=== PATIENT | male | born 1955 | race Two or more races ===

== ENCOUNTER → 2017-02-19 | Outpatient (CLI) | payer OTHER ==
--- NOTE | 2017-02-19 21:01 | REP ---
RIGHT KNEE, FOUR VIEWS: HISTORY: Pain. COMPARISON: 12/30/2011. The patient is status post right knee arthroplasty. There is no acute fracture or dislocation. IMPRESSION: The patient is status post right knee arthroplasty. Signed by Ken Santos MD 02/20/2017 07:46 A
--- NOTE | 2017-02-19 21:02 | REP ---
RIGHT ANKLE, FOUR VIEWS: HISTORY: Pain. There is no acute fracture or dislocation. The joint space is normal in appearance. IMPRESSION: There is no acute fracture or dislocation. Signed by Ken Santos MD 02/20/2017 07:46 A
== END ==
LOC: M WUC 09:32
PROVIDERS: ATTEND Physician Assistant
DX: M25.561 Pain in right knee (principal); M25.571 Pain in right ankle and joints of right foot

== ENCOUNTER 2017-05-06 16:12 | Emergency (ER) | payer BC, OTHER ==
[~2017-05-06] VITALS: Ht 165.1 cm; Wt 94.8 kg
[2017-05-06] MEDS ORDERED: LIDOCAINE W/EPINEPHRINE 1% 20ML VIAL SC ONE (16:45)
[2017-05-06] MEDS ORDERED: AUGM875T28 PO (17:35)
[2017-05-06] MEDS ORDERED: NORCOTAB PO (18:33)
[2017-05-06 18:38] VITALS: BP 144/77
== END 2017-05-06 18:40 | disposition home or self-care (01) ==
LOC: M ED 16:12
DX: S01.511A Laceration without foreign body of lip, initial encounter (principal); W45.8XXA Other foreign body or object entering through skin, initial encounter; Y92.89 Other specified places as the place of occurrence of the external cause; Y93.89 Activity, other specified; Y99.9 Unspecified external cause status

== ENCOUNTER → 2019-01-07 | Outpatient (CLI) | payer OTHER ==
[~2019-01-07] MED LIST: AUGM875T28 PO; NORCOTAB PO
--- NOTE | 2019-01-12 15:26 | REP ---
THREE-PHASE BONE SCAN OF THE KNEES: HISTORY: Rule out loosening versus fracture. The patient reports an accident in the Fall in July 2018. Bilateral knee pain, left more than right. History of right knee replacement 2 years ago. Comparison bilateral knee radiographs have been retrieved. These are dated November 05, 2018. TECHNIQUE: 22.0 mCi technetium 99m MDP is injected and standard three-phase imaging was acquired. SCINTIGRAPHIC FINDINGS: Anterior and posterior flow images are normal. Blood pool images and delayed scan images demonstrate mild arthritic uptake in the medial and patellofemoral compartment of the left knee. There is prosthesis bone interface uptake associated with the right knee arthroplasty components. There is no focality on the right to suggest loosening or infection. Incidental note is made of mild arthritic uptake in the right ankle and hind foot and to a lesser extent in the left ankle. IMPRESSION: Arthritic uptake pattern in the left knee and bilateral ankles. Expected bone prosthesis interface uptake associated with the right knee arthroplasty. No evidence to suggest loosening or infection. Electronically Signed by Ron Kilgore MD 01/12/2019 05:25 P
== END ==
LOC: M RAD 09:59
PROVIDERS: ATTEND Physician Assistant
DX: Z96.653 Presence of artificial knee joint, bilateral (principal); M17.12 Unilateral primary osteoarthritis, left knee; M19.071 Primary osteoarthritis, right ankle and foot; M19.072 Primary osteoarthritis, left ankle and foot
CPT/HCPCS: 78315; A9503

== ENCOUNTER 2020-10-21 15:36 | Inpatient (IN) | payer OTHER ==
[~2020-10-21] VITALS: Ht 172.7 cm; Wt 105.2 kg
[~2020-10-21 15:36] MED LIST changes: +HYDR-3715 PO; -NORCOTAB PO
[2020-10-21] MEDS ORDERED: AMLO25TA PO (15:46)
[2020-10-21] MEDS ORDERED: MORPHINE 4 MG/ML 1ML VIAL/SYRINGE (J2270) IV ONE ×2 (17:15→21:00)
[2020-10-21 17:57] LABS: BASO # 0.1 10^3/uL (0.0-0.2); BASO % 0.7 % (0.0-1.0); EOS # 0.7 10^3/uL (0.0-0.5); EOS % 6.7 % (0.0-3.0); HEMOGLOBIN 15.7 g/dl (13.5-17.5); LYMPH # 1.7 10^3/uL (1.5-5.0); LYMPH % 15.9 % (24.0-44.0); MEAN CORPUSCULAR HEMOGLOBIN 31.8 pg (27.0-33.0); MEAN CORPUSCULAR HGB CONC 33.4 g/dl (32.0-36.5); MEAN CORPUSCULAR VOLUME 95.3 fl (80.0-96.0); MONO # 0.8 10^3/uL (0.0-0.8); MONO % 7.3 % (0.0-5.0); NEUTROPHILS # 7.5 10^3/uL (1.5-8.5); NEUTROPHILS % 68.9 % (36.0-66.0); PLATELET COUNT, AUTOMATED 186 10^3/uL (150-450); RED BLOOD COUNT 4.93 10^6/uL (4.30-6.10); WHITE BLOOD COUNT 10.9 10^3/uL (4.0-10.0)
[2020-10-21] MEDS ORDERED: ISOVUE-370 76% 100ML VIAL As Ordered ONE (18:09)
[2020-10-21 18:17] LABS: ERYTHROCYTE SEDIMENTATION RATE 5 mm/hr (0-20)
[2020-10-21 18:29] LABS: ALBUMIN 3.8 GM/DL (3.2-5.2); ALT/SGPT 66 U/L (12-78); BILIRUBIN,DIRECT < 0.1 MG/DL (0.0-0.2); BILIRUBIN,TOTAL 0.5 MG/DL (0.2-1.0); C REACTIVE PROTEIN QUANTITATIV 0.88 MG/DL (0.00-0.30); TOTAL PROTEIN 7.3 GM/DL (6.4-8.2)
[2020-10-21] MEDS ORDERED: dexameTHASONE 20MG/5ML VIAL (J1100 PER 1MG) IV ONE (20:45)
[2020-10-21] MEDS ORDERED: AMPICILLIN SOD/SULBACTAM SOD 3 GM in D5W MINI-BAG PLUS 100 ML IV ONE (20:45)
[2020-10-21] MEDS ORDERED: ACETAMINOPHEN TAB 650MG DOSE (2X325MG) PO PRN (21:30)
--- NOTE | 2020-10-21 21:43 | HPEPDOC ---
General Date of Admission 10/21/20 Date of Service: Oct 21, 2020 Chief Complaint The patient is a 65-year-old male admitted with a reason for visit of EYE Pain. 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 Genie hartley stated that for past 3 days he has been having increased swelling and pain of the right periorbital area. Patient removed his eye prosthesis and decided to come to ER. In ER patient was found to have white blood count of 10.5. CT scan showed significant soft tissue swelling of right jaime-orbital area. ER contacted ENT in [facility], who did facial reconstruction surgery after construction accident. He recommended antibiotics therapy. Home Medications Scheduled Amlodipine Besylate (Amlodipine Besylate) 2.5 Mg Tablet, 2.5 MG PO DAILY, (Reported) Allergies Coded Allergies: nitroglycerin (Verified Adverse Reaction, Intermediate, PASSES OUT(NITROSTAT), 10/21/20) Past Medical History Medical History Multiple orthopedic surgery after construction accident Patient lost right eye after accident in 2018 Hypertension Surgical History Multiple orthopedic surgery after construction accident Family History I personally reviewed family history and found not pertinent Social History * Smoker: current smoker Alcohol: Denies Drugs: denies A-FIB/CHADSVASC A-FIB History Current/History of A-Fib/PAF?: No Current PO Anticoag Therapy: No Review of Systems Constitutional: Denies: Chills, Fever Eyes: Reports: Pain, Redness ENT: Reports: Head Aches Skin: Denies: Rash, Lesions Pulmonary: Denies: Dyspnea, Cough Cardiovascular: Denies: Chest Pain Gastrointestinal: Denies: Nausea Genitourinary: Denies: Frequency Hematologic: Denies: Bruising Endocrine: Denies: Polydipsia, Polyphagia Musculoskeletal: Denies: Neck Pain Neurological: Denies: Weakness Psych: Reports: Mood Normal Physical Examination General Exam: Positive: Alert, Cooperative Eye Exam: Positive: Other Eye Symptoms ( right periorbital swelling); Negative: PERRLA (no red eye) ENT Exam: Positive: Pharynx Normal, Nares Patent Neck Exam: Positive: Supple; Negative: JVD Chest Exam: Positive: Clear to auscultation Heart Exam: Positive: Rate Normal Telemetry: Positive: No significant arrhythmia Abdomen Exam: Positive: Normal bowel sounds Extremity Exam: Negative: Clubbing, Cyanosis Skin Exam: Positive: Nl turgor and temperature Neuro Exam: Positive: Strength at 5/5 X4 ext, Reflexes 2+ Psych Exam: Positive: Mental status NL Vital Signs Vital Signs Date Time Temp Pulse Resp B/P (MAP) Pulse Ox O2 Delivery O2 Flow Rate FiO2 10/21/20 21:11 16 10/21/20 16:03 10/21/20 15:37 98.4 68 97 Room Air Laboratory Data Labs 24H Laboratory Tests 2 10/21/20 17:43: Immature Granulocyte % (Auto) 0.5, Neutrophils (%) (Auto) 68.9H, Lymphocytes (%) (Auto) 15.9L, Monocytes (%) (Auto) 7.3H, Eosinophils (%) (Auto) 6.7H, Basophils (%) (Auto) 0.7, Neutrophils # (Auto) 7.5, Lymphocytes # (Auto) 1.7, Monocytes # (Auto) 0.8, Eosinophils # (Auto) 0.7H, Basophils # (Auto) 0.1, Nucleated Red Blood Cells % (auto) 0.0, Erythrocyte Sedimentation Rate 5, Lactic Acid Level 1.5, Total Bilirubin 0.5, Direct Bilirubin < 0.1, Aspartate Amino Transf (AST/SGOT) 58H, Alanine Aminotransferase (ALT/SGPT) 66, Alkaline Phosphatase 92, C-Reactive Protein, Quantitative 0.88H, Total Protein 7.3, Albumin 3.8, Albumin/Globulin Ratio 1.1 10/21/20 17:51: POC Glucose (Misc Panel) 104, POC Sodium (Misc Panel) 140, POC Potassium (Misc Panel) 4.1, POC Chloride (Misc Panel) 104, POC Total CO2 (Misc Panel) 28.0H, POC Blood Urea Nitrogen (Misc Panel 12, POC Ionized Calcium (Misc Panel) 4.4L, POC Creatinine (Misc Panel) 0.7, POC Hematocrit (Misc Panel) 48.0 CBC/BMP Laboratory Tests 10/21/20 17:43 Assessment/Plan Patient is 65 years old male with past history of hypertension, multiple orthopedic surgery after construction accident in 2018, 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 Patient stated that for past 3 days he has been having increased swelling and pain of the right periorbital area. Patient removed his eye prosthesis and decided to come to ER. In ER patient was found to have white blood count of 10.5. CT scan showed significant soft tissue swelling of right jaime-orbital area. ER contacted ENT in [facility], who did facial reconstruction surgery after construction accident. He recommended antibiotics therapy. Problems (1) Periorbital cellulitis of right eye Status: Acute Problem Text: Unasyn IV Continue Decadron IV fluid Consider ENT consult if no improvement for next 24 hours (2) Hypertension Status: Chronic Problem Text: Blood pressures under control Continue home cardioprotective medication Plan / VTE VTE Prophylaxis Ordered?: Yes NUVIA AGGARWAL DO Oct 21, 2020 21:43
[2020-10-21] MEDS: NS 1,000 ML IV SCH (22:24)
[2020-10-21] MEDS: ENOXAPARIN 40MG/0.4ML SYRINGE (J1650 PER 10MG) SC SCH (22:47)
[2020-10-21 22:50] LABS: RSV AMPLIFICATION NEGATIVE (NEGATIVE)
[2020-10-22] MEDS: AMPICILLIN SOD/SULBACTAM SOD 3 GM in D5W MINI-BAG PLUS 100 ML IV SCH ×3 (05:25→20:29)
[2020-10-22 06:30] VITALS: BP 163/78
[2020-10-22 06:39] LABS: HEMATOCRIT 46.1 % (42.0-52.0); HEMOGLOBIN 15.7 g/dl (13.5-17.5); MEAN CORPUSCULAR HEMOGLOBIN 32.6 pg (27.0-33.0); MEAN CORPUSCULAR HGB CONC 34.1 g/dl (32.0-36.5); MEAN CORPUSCULAR VOLUME 95.6 fl (80.0-96.0); PLATELET COUNT, AUTOMATED 201 10^3/uL (150-450); RED BLOOD COUNT 4.82 10^6/uL (4.30-6.10); WHITE BLOOD COUNT 9.3 10^3/uL (4.0-10.0)
[2020-10-22 07:13] LABS: ALBUMIN 3.3 GM/DL (3.2-5.2); ALT/SGPT 82 U/L (12-78); BILIRUBIN,TOTAL 0.7 MG/DL (0.2-1.0); BLOOD UREA NITROGEN 12 MG/DL (7-18); CALCIUM LEVEL 8.5 MG/DL (8.8-10.2); CARBON DIOXIDE LEVEL 26 MEQ/L (21-32); CHLORIDE LEVEL 103 MEQ/L (98-107); CREATININE FOR GFR 0.92 MG/DL (0.70-1.30); GLOMERULAR FILTRATION RATE > 60.0 (>49); GLUCOSE, FASTING 151 MG/DL (70-100); MAGNESIUM LEVEL 2.2 MG/DL (1.8-2.4); POTASSIUM SERUM 4.2 MEQ/L (3.5-5.1); SODIUM LEVEL 136 MEQ/L (136-145); TOTAL PROTEIN 7.1 GM/DL (6.4-8.2)
[2020-10-22] MEDS: dexameTHASONE 4 MG/ML 1ML VIAL (J1100 PER 1MG) IV SCH ×2 (08:07→20:30)
[2020-10-22] MEDS: NS 1,000 ML IV SCH ×2 (08:07→17:05)
--- NOTE | 2020-10-22 08:24 | REP ---
INDICATION: erythema/pain/swelling around right orbit. Repeat dictation. Preliminary report is provided at the time of the exam by mohan PAULSON. COMPARISON: July 09, 2018.. TECHNIQUE: Helical scanning is acquired and 3 mm axial images re-formatted. Coronal and sagittal MPR images are generated. FINDINGS: There are extensive old posttraumatic changes in the facial bones including right maxillary sinus, right zygoma, right lateral orbital margin, the nasal bone, and the medial and inferior cabrera of the right orbit. There is a right ocular prosthesis. No acute fracture is seen. There is a the 13 mm fluid collection along the medial wall of the orbit anteriorly consistent with dacryocystitis and or possible abscess. This does have some enhancing margin. There is periorbital soft tissue swelling in the preseptal soft tissues on the right. In addition there is an area of right perimandibular soft tissue swelling and increased attenuation in the fat of the right perimandibular region. This is visible on prior CT images from July 09, 2018 and is unchanged. It is of uncertain significance. It measures approximately 4 cm in greatest diameter and appears to be a soft tissue mass. There are normal appearing anterior perimandibular and jugular lymph nodes bilaterally. Band the parotid and submandibular glands are unremarkable and symmetric. There are tonsillar crypt calcifications noted bilaterally. No intraorbital or periorbital abnormalities are noted on the left. No intracranial abnormality is observed. 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 Right ocular prosthesis. 13 mm fluid collection in the medial and anterior aspect of the left periorbital soft tissues, extraconal in location. Most consistent with dacryocystitis/abscess. There are mild mucosal paranasal sinus changes in the ethmoid sinuses bilaterally. <Electronically signed by Goyo Kilgore > 10/22/20 [id number]
--- NOTE | 2020-10-22 11:26 | IPNPDOC ---
Text Note Date of Service The patient was seen on 10/22/20. NOTE Subjective: No any acute events overnight. Facial cellulitis significantly s ubsided. 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 Garrett bailey stated that for past 3 days he has been having increased swelling and pain of the right periorbital area. Patient removed his eye prosthesis and decided to come to ER. In ER patient was found to have white blood count of 10.5. CT scan showed significant soft tissue swelling of right jaime-orbital area. ER contacted ENT in [facility], who did facial reconstruction surgery after construction accident. He recommended antibiotics therapy. Problems (1) Periorbital cellulitis of right eye Improved Unasyn IV Continue Decadron IV fluid (2) Hypertension Blood pressures under control Continue home cardioprotective medication VS,Fishbone, I+O VS, Fishbone, I+O Laboratory Tests 10/21/20 17:43 10/22/20 06:22 Vital Signs Date Time Temp Pulse Resp B/P (MAP) Pulse Ox O2 Delivery O2 Flow Rate FiO2 10/22/20 06:30 97.9 70 18 163/78 (106) 97 Room Air I&O- Last 24 Hours up to 6 AM 10/22/20 06:00 Intake Total 350 ml Balance 350 ml NUVIA AGGARWAL DO Oct 22, 2020 11:26
[2020-10-22] MEDS: ENOXAPARIN 40MG/0.4ML SYRINGE (J1650 PER 10MG) SC SCH (20:30)
[2020-10-22 22:00] VITALS: BP 147/84
[2020-10-23] MEDS: NS 1,000 ML IV SCH (03:40)
[2020-10-23] MEDS: AMPICILLIN SOD/SULBACTAM SOD 3 GM in D5W MINI-BAG PLUS 100 ML IV SCH (04:37)
[2020-10-23 06:00] VITALS: BP_SYST 120; BP_SYST 142; BP_DIAS 77; BP_DIAS 92
[2020-10-23] MEDS: dexameTHASONE 4 MG/ML 1ML VIAL (J1100 PER 1MG) IV SCH (08:01)
[2020-10-23] MEDS ORDERED: PROB250C PO (09:39)
[2020-10-23] MEDS ORDERED: PRED20TA PO (09:39)
[2020-10-23] MEDS ORDERED: AMOX875T PO (09:39)
[2020-10-23] MEDS ORDERED: ACET-907 PO (09:39)
[2020-10-23] MEDS ORDERED: BACT800T5 PO (09:39)
--- NOTE | 2020-10-23 18:45 | DS.PDOC ---
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 Patient stated that for past 3 days he has been having increased swelling and pain of the right periorbital area. Patient removed his eye prosthesis and decided to come to ER. In ER patient was found to have white blood count of 10.5. CT scan showed significant soft tissue swelling of right jaime-orbital area. ER contacted ENT in [facility], who did facial reconstruction surgery after construction accident. He recommended antibiotics therapy. He was admitted for periorbital cellulitis requiring IV abx. HOSPITAL COURSE: Patient was treated with IV abx and steroid during hospital course. Daily his swelling improved. By 10/23/20, his swelling had resolved except for two small areas of induration, nontender. WBC was wnl, afebrile. He was adischarged home with amoxicillin and bactrim x 14 days, probiotic, prednisone taper over 1 week and f/u with PCP. PAST MEDICAL/SURGICAL HISTORY: Multiple orthopedic surgery after construction accident Patient lost right eye after accident in 2018 Hypertension FHX: Noncontributory SOCIAL HX: Smoker: current smoker Alcohol: Denies Drugs: denies ALLERGIES: Please see below. DISCHARGE MEDICATIONS: Please see below. PHYSICAL EXAM: VS: Please see below GENERAL APPEARANCE: NAD, resting in bed HEENT: Right periorbital swelling much decreased with decreased with erythema, small areas of induration on the area of the left inner eye where gland is, nont daan. 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 PLAN: (1) Periorbital cellulitis of right eye -Improved with IV abx, IV steroids -D/c today with PO Bactrim and Amoxicillin for 2 weeks, prednisone taper -Advised to f/u with PCP and reconstructive surgeon before inserting prosthetic to right eye -F/u arranged prior to d/c with PCP -He is to report any incr swelling, pain or fevers to medical professional immediately. (2) Hypertension -Stable -C/w home med DISPOSITION: D/c home today with abx and prednisone regimen. F/u with PCP TIME SPENT ON DISCHARGE: Greater than 30 minutes. Vital Signs/I&Os Vital Signs Date Time Temp Pulse Resp B/P (MAP) Pulse Ox O2 Delivery O2 Flow Rate FiO2 10/23/20 06:00 97.6 84 18 142/77 (98) 97 Room Air I&O- Last 24 Hours up to 6 AM 10/23/20 06:00 Intake Total 3250 ml Output Total 1975 ml Balance 1275 ml Discharge Medications Scheduled Amlodipine Besylate (Amlodipine Besylate) 2.5 Mg Tablet, 2.5 MG PO DAILY, (Reported) Amoxicillin (Amoxicillin) 875 Mg Tablet, 875 MG PO BID Prednisone (Prednisone) 20 Mg Tablet, 40 MG PO DAILY Prednisone taper: 40 mg Po x 4 days, 20 mg PO x 3 days Saccharomyces Boulardii (Probiotic) 250 Mg Capsule, 1 CAP PO BIDWM Sulfamethoxazole/Trimethoprim (Bactrim Ds Tablet) 1 Each Tablet, 1 TAB PO BID Scheduled PRN Acetaminophen (Tylenol) 325 Mg Tablet, 650 MG PO Q6HP PRN for PAIN OR FEVER Allergies Coded Allergies: nitroglycerin (Verified Adverse Reaction, Intermediate, PASSES OUT(NITROSTAT), 10/21/20) Mireya Mckeon MD Oct 23, 2020 18:45
== END 2020-10-23 10:45 | disposition home or self-care (01) | DRG 383 ==
LOC: M ED 15:36 → M ED INP 21:42 → M MS5PR 10-22 01:05
PROVIDERS: ADMIT Internal Medicine; ATTEND Internal Medicine
DX: L03.213 Periorbital cellulitis (principal); I10 Essential (primary) hypertension; F17.200 Nicotine dependence, unspecified, uncomplicated; Z79.899 Other long term (current) drug therapy; Z88.8 Allergy status to other drugs, medicaments and biological substances

== ENCOUNTER → 2021-04-26 | Outpatient (REF) | payer MEDICARE, OTHER ==
[~2021-04-26] MED LIST changes: +ACET-907 PO; +AMLO25TA PO; +AMOX875T PO; +BACT800T5 PO; +PRED20TA PO; +PROB250C PO
[2021-04-26 17:40] LABS: APPEARANCE, URINE HAZY (CLEAR); BACTERIA, URINE AUTO NEGATIVE (NEGATIVE); BILIRUBIN, URINE AUTO NEGATIVE (NEGATIVE); BLOOD, URINE BLOOD NEGATIVE (NEGATIVE); COLOR, URINE AMBER (YELLOW); GLUCOSE, URINE (UA) AUTO NEGATIVE (NEGATIVE); KETONE, URINE AUTO TRACE mg/dL (NEGATIVE); LEUKOCYTE ESTERASE, URINE AUTO NEGATIVE (NEGATIVE); MUCUS, URINE LARGE (NEGATIVE); NITRITE, URINE AUTO NEGATIVE (NEGATIVE); PROTEIN, URINE AUTO 1+ mg/dL (NEGATIVE); RBC, URINE AUTO 1 /HPF (0-3); SPECIFIC GRAVITY URINE AUTO 1.034 (1.002-1.035); SQUAMOUS EPITHELIAL CELL UR AU 1 /HPF (0-6); UROBILINOGEN, URINE AUTO 0.2 mg/dL (0.0-2.0); WBC, URINE AUTO 3 /HPF (0-3)
== END ==
LOC: M LAB REF 16:16
PROVIDERS: ATTEND Physician Assistant
DX: R30.0 Dysuria (principal)

== ENCOUNTER → 2021-05-03 | Outpatient (CLI) | payer MEDICARE ==
[~2021-05-03] MED LIST changes: +BENA25CA4 PO; +DULO1CAP4 PO; +ERYT5OIN25; +OMEP-173 PO; +PARO5TAB PO; +PRED50TA PO; +[UNRECOGNIZED DRUG - OTHER] OU
[2021-05-03 12:33] LABS: PLATELET COUNT, AUTOMATED 297 10^3/uL (150-450)
[2021-05-03 12:45] LABS: INR 0.96
[2021-05-03 12:46] LABS: PARTIAL THROMBOPLASTIN TIME 48.2 SECONDS (24.2-38.5)
== END ==
LOC: M LAB 11:02
PROVIDERS: ATTEND Physician Assistant
DX: Z01.812 Encounter for preprocedural laboratory examination (principal); Z79.899 Other long term (current) drug therapy; Z79.52 Long term (current) use of systemic steroids

== ENCOUNTER → 2021-05-06 | Outpatient (CLI) | payer MEDICARE ==
[~2021-05-06] MED LIST changes: -BENA25CA4 PO; -DULO1CAP4 PO; -ERYT5OIN25; -OMEP-173 PO; -PARO5TAB PO; -PRED50TA PO; -[UNRECOGNIZED DRUG - OTHER] OU
== END ==
LOC: M LAB 09:24
PROVIDERS: ATTEND Physician Assistant
DX: Z01.812 Encounter for preprocedural laboratory examination (principal)

== ENCOUNTER → 2022-01-01 | Outpatient (CLI) | payer MEDICARE, OTHER ==
[~2022-01-01] MED LIST changes: +BENA25CA4 PO; +DULO1CAP4 PO; +ERYT5OIN25; +OMEP-173 PO; +PARO5TAB PO; +PRED50TA PO; +[UNRECOGNIZED DRUG - OTHER] OU
[2022-01-01 12:26] LABS: BASO # 0.1 10^3/uL (0.0-0.2); BASO % 0.6 % (0.0-1.0); EOS # 0.8 10^3/uL (0.0-0.5); EOS % 8.1 % (0.0-3.0); HEMATOCRIT 47.6 % (42.0-52.0); HEMOGLOBIN 16.5 g/dl (13.5-17.5); LYMPH # 2.1 10^3/uL (1.5-5.0); LYMPH % 21.2 % (24.0-44.0); MEAN CORPUSCULAR HEMOGLOBIN 32.7 pg (27.0-33.0); MEAN CORPUSCULAR HGB CONC 34.7 g/dl (32.0-36.5); MEAN CORPUSCULAR VOLUME 94.3 fl (80.0-96.0); MONO # 0.7 10^3/uL (0.0-0.8); MONO % 7.6 % (2.0-8.0); NEUTROPHILS % 62.1 % (36.0-66.0); PLATELET COUNT, AUTOMATED 215 10^3/uL (150-450); RED BLOOD COUNT 5.05 10^6/uL (4.30-6.10); WHITE BLOOD COUNT 9.7 10^3/uL (4.0-10.0)
[2022-01-01 12:34] LABS: PARTIAL THROMBOPLASTIN TIME 33.8 SECONDS (25.9-37.0)
[2022-01-01 12:40] LABS: DRVV SCREEN 34.2 SEC
[2022-01-01 12:42] LABS: PTT LUPUS TYPE ANTICOAG SCREEN 0.9 (0-1.2)
[2022-01-01 13:01] LABS: ALBUMIN 3.7 GM/DL (3.2-5.2); ALT/SGPT 58 U/L (12-78); BILIRUBIN,TOTAL 0.5 MG/DL (0.2-1.0); BLOOD UREA NITROGEN 10 MG/DL (7-18); CALCIUM LEVEL 8.9 MG/DL (8.8-10.2); CARBON DIOXIDE LEVEL 31 MEQ/L (21-32); CHLORIDE LEVEL 108 MEQ/L (98-107); CREATININE FOR GFR 0.77 MG/DL (0.70-1.30); FERRITIN 107 NG/ML (26-388); GLOMERULAR FILTRATION RATE > 60.0 (>49); GLUCOSE, FASTING 92 MG/DL (70-100); IRON (FE) 107 UG/DL (65-175); PERCENT SATURATION 26.2 % (19.7-50.0); POTASSIUM SERUM 4.2 MEQ/L (3.5-5.1); SODIUM LEVEL 141 MEQ/L (136-145); TOTAL IRON BINDING CAPACITY 408 UG/DL (250-450); TOTAL PROTEIN 7.3 GM/DL (6.4-8.2)
[2022-01-01 13:13] LABS: VITAMIN B12 LEVEL 440 PG/ML (247-911)
== END ==
LOC: M LAB 11:32
PROVIDERS: ATTEND Internal Medicine Hematology & Oncology
DX: Z01.818 Encounter for other preprocedural examination (principal)

== ENCOUNTER → 2022-03-12 | Outpatient (CLI) | payer OTHER, MEDICARE ==
[2022-03-12 14:19] LABS: PLATELET COUNT, AUTOMATED 211 10^3/uL (150-450)
[2022-03-12 14:29] LABS: INR 0.98; PROTHROMBIN TIME 13.4 SECONDS (12.7-14.5)
[2022-03-12 14:30] LABS: PARTIAL THROMBOPLASTIN TIME 35.2 SECONDS (25.9-37.0)
== END ==
LOC: M PLALAB 11:34
PROVIDERS: ATTEND Orthopaedic Surgery
DX: M48.02 Spinal stenosis, cervical region (principal)

== ENCOUNTER → 2022-04-17 | Outpatient (CLI) | payer MEDICARE, OTHER ==
[~2022-04-17] MED LIST changes: +D 101000 PO; +DULO1CAP5 PO; +LOSA25TA13 PO; +PURE500C5 PO; +ZINC30CA PO
== END ==
LOC: M LABSMTC 09:48
PROVIDERS: ATTEND Anesthesiology
DX: Z11.52 Encounter for screening for COVID-19 (principal); Z20.822 Contact with and (suspected) exposure to COVID-19

== ENCOUNTER 2022-04-18 09:19 | Day surgery (SDC) | payer MEDICARE, OTHER ==
[~2022-04-18] VITALS: Ht 172.7 cm; Wt 98.8 kg
[~2022-04-18 09:19] MED LIST changes: +CEFUROXIME 1MG/0.1ML INTRACAMERAL INJ As Ordered ONE; -D 101000 PO; +LIDOCAINE 1% SDV 5ML VIAL As Ordered ONE; +MIDAZOLAM INJ 2MG/2ML VIAL (J2250 PER 1MG) As Ordered ONE; +OFLOXACIN 0.3 % (OCUFLOX) OPTH SOL 5ML OS SCH; +PHENYLEPHRINE 2.5% OPHTH SOL 2ML OS SCH; +PROPARACAINE 0.5% OPHTH SOL 15ML OS ONE; -PURE500C5 PO; +TROPICAMIDE 1% OPHTH SOLN 2ML OS SCH; -ZINC30CA PO
[2022-04-18] MEDS ORDERED: BSS IRR 500ML/OMIDRIA 4ML IRR BAG (OR ONLY) As Ordered ONE (09:56)
[2022-04-18] MEDS ORDERED: ZINC30CA PO (10:12)
[2022-04-18] MEDS ORDERED: PURE500C5 PO (10:12)
[2022-04-18] MEDS ORDERED: D 101000 PO (10:12)
[2022-04-18 12:15] VITALS: BP 153/81
== END 2022-04-18 12:20 | disposition home or self-care (01) ==
LOC: M SDC 09:19
PROVIDERS: ATTEND Ophthalmology
DX: H25.12 Age-related nuclear cataract, left eye (principal); I10 Essential (primary) hypertension; I38 Endocarditis, valve unspecified; R05.9 Cough, unspecified; F17.210 Nicotine dependence, cigarettes, uncomplicated; Z79.899 Other long term (current) drug therapy; Z79.82 Long term (current) use of aspirin; Z88.8 Allergy status to other drugs, medicaments and biological substances
CPT/HCPCS: 66984; J0697; J1097; J2250; V2632

== ENCOUNTER 2025-06-03 14:58 | Emergency (ER) | payer MEDICARE, OTHER ==
[~2025-06-03] VITALS: Ht 167.6 cm; Wt 91.4 kg
[~2025-06-03 14:58] MED LIST changes: +ASCO500C3 PO; -CEFUROXIME 1MG/0.1ML INTRACAMERAL INJ As Ordered ONE; +D 101000 PO; -LIDOCAINE 1% SDV 5ML VIAL As Ordered ONE; -MIDAZOLAM INJ 2MG/2ML VIAL (J2250 PER 1MG) As Ordered ONE; -OFLOXACIN 0.3 % (OCUFLOX) OPTH SOL 5ML OS SCH; -PHENYLEPHRINE 2.5% OPHTH SOL 2ML OS SCH; -PRED50TA PO; +PRED50TA57 PO; -PROPARACAINE 0.5% OPHTH SOL 15ML OS ONE; -TROPICAMIDE 1% OPHTH SOLN 2ML OS SCH; +ZINC30CA PO
[2025-06-03 15:00] VITALS: TEMP 97.6
[2025-06-03] MEDS: KETOROLAC 30 MG/ML 1 ML VIAL IV ONE (16:26)
[2025-06-03 16:34] LABS: BASO # 0.1 10^3/uL (0.0-0.2); BASO % 0.7 % (0.0-1.0); EOS # 0.7 10^3/uL (0.0-0.5); EOS % 7.0 % (0.0-3.0); LYMPH # 2.1 10^3/uL (1.5-5.0); LYMPH % 20.7 % (24.0-44.0); MONO # 0.7 10^3/uL (0.0-0.8); MONO % 7.1 % (2.0-8.0); NEUTROPHILS # 6.4 10^3/uL (1.5-8.5); NEUTROPHILS % 64.2 % (36.0-66.0); PLATELET COUNT, AUTOMATED 178 10^3/uL (150-450)
[2025-06-03 17:03] LABS: CK-MB VALUE MASS 1.5 NG/ML (<3.6)
[2025-06-03 17:05] LABS: ALT/SGPT 20.0 U/L (7.0-40); AST/SGOT 21.0 U/L (<34)
[2025-06-03 17:10] LABS: CPK CREATINE PHOSPHOKINASE 99.0 U/L (46-171); MB/CK RELATIVE INDEX 1.51 (< OR =4)
[2025-06-03 17:15] LABS: KETONE, URINE AUTO RFX NEGATIVE (NEGATIVE); LEUKOCYTE ESTERASE UR AUTO RFX NEGATIVE (NEGATIVE); MUCUS, URINE RFX SMALL (NEGATIVE); NITRITE, URINE AUTO RFX NEGATIVE (NEGATIVE); RBC, URINE AUTO RFX 1 /HPF (0-3); SQUAM EPITHELIAL CELL UR AURFX 2 /HPF (0-6); WBC, URINE AUTO RFX 1 /HPF (0-3)
[2025-06-03] MEDS ORDERED: ISOVUE-370 76% 100 ML VIAL As Ordered ONE (17:19)
[2025-06-03 18:02] LABS: CK-MB VALUE MASS 1.4 NG/ML (<3.6)
[2025-06-03 18:03] LABS: CPK CREATINE PHOSPHOKINASE 90.0 U/L (46-171); MB/CK RELATIVE INDEX 1.55 (< OR =4)
[2025-06-03 20:00] VITALS: BP 169/86
[2025-06-03 20:15] VITALS: O2SAT 95
[2025-06-03] MEDS ORDERED: KETO-204 PO (20:24)
[2025-06-03] MEDS ORDERED: CYCL-707 PO (20:24)
== END 2025-06-03 20:32 | disposition home or self-care (01) ==
LOC: M ED 14:58
DX: S29.012A Strain of muscle and tendon of back wall of thorax, initial encounter (principal); Y92.9 Unspecified place or not applicable; Y93.9 Activity, unspecified; Y99.9 Unspecified external cause status; R00.1 Bradycardia, unspecified; I45.2 Bifascicular block; I10 Essential (primary) hypertension; F17.210 Nicotine dependence, cigarettes, uncomplicated; Z88.8 Allergy status to other drugs, medicaments and biological substances; Z79.1 Long term (current) use of non-steroidal anti-inflammatories (NSAID); Z79.2 Long term (current) use of antibiotics; Z79.899 Other long term (current) drug therapy
CPT/HCPCS: 71101; 74177; 80047; 80076; 81001; 82550; 82553; 83690; 84484; 85025; 93005; 96374; 99284; J1885; Q9967